=== PATIENT | female | born 1975 | race Hispanic/Latino ===

== ENCOUNTER → 2018-11-08 | Outpatient (CLI) | payer OTHER ==
[~2018-11-08] MED LIST: IOHEXOL-350 50ML VIAL IV ONE
== END | disposition home or self-care (01) ==
LOC: RAH 09:38
PROVIDERS: ATTEND Obstetrics & Gynecology
DX: N97.1 Female infertility of tubal origin (principal); N91.2 Amenorrhea, unspecified
CPT/HCPCS: 36415; 58340; 74740; 84702; Q9967

== ENCOUNTER → 2020-09-19 | Outpatient (CLI) | payer BC | END | disposition home or self-care (01) | LOC: RAH 14:17 | PROVIDERS: ATTEND Family Medicine | DX: N63.11 Unspecified lump in the right breast, upper outer quadrant (principal); N63.20 Unspecified lump in the left breast, unspecified quadrant | CPT/HCPCS: 77066 ==

== ENCOUNTER → 2021-04-08 | Outpatient (CLI) | payer BC | END | disposition home or self-care (01) | LOC: RAH 14:45 | PROVIDERS: ATTEND Family Medicine | DX: D24.1 Benign neoplasm of right breast (principal); N63.11 Unspecified lump in the right breast, upper outer quadrant | CPT/HCPCS: 76641 ==

== ENCOUNTER → 2023-12-04 | Outpatient (CLI) | payer BC | END | disposition home or self-care (01) | LOC: RAH 07:38 | PROVIDERS: ATTEND Family Medicine | DX: N63.11 Unspecified lump in the right breast, upper outer quadrant (principal); N63.20 Unspecified lump in the left breast, unspecified quadrant; R92.8 Other abnormal and inconclusive findings on diagnostic imaging of breast | CPT/HCPCS: 77066 ==

== ENCOUNTER → 2025-04-01 | Outpatient (CLI) | payer BC | END | disposition home or self-care (01) | LOC: RAH 13:07 | PROVIDERS: ATTEND Family Medicine | DX: Z12.31 Encounter for screening mammogram for malignant neoplasm of breast (principal) | CPT/HCPCS: 77067 ==

== ENCOUNTER → 2025-06-20 | Outpatient (CLI) | payer BC ==
--- NOTE | 2025-06-23 11:15 | HMCIMG ---
BILATERAL BREAST ULTRASOUND: COMPARISON: Prior study from 12/04/2023, 04/08/2021 and 09/19/2020 are available CLINICAL HISTORY: Dense breasts Finding: Real-time examination of the both breasts demonstrates heterogeneous echotexture throughout both the breasts. The right breast between 9 and 10:00 there is a fibroadenoma which appears to be stable and measures 1.4 x 0.7 x 1.1 cm. Previously it measured 1.8 x 0.7 x 1.5 cm. There are no other solid or cystic masses seen in either breast. IMPRESSION: 1. Stable density in the right breast at between 9 and 10:00 suggesting a fibroadenoma 2. No other mass are solid or cystic lesion seen. I would recommend annual mammography with tomography with bilateral breast sonogram. FINAL ASSESSMENT: ACR: BI-RAD- 2. Benign Finding.
== END | disposition home or self-care (01) ==
LOC: RAH 10:34
PROVIDERS: ATTEND Family Medicine
DX: R92.333 Mammographic heterogeneous density, bilateral breasts (principal)